=== PATIENT | female | born 1990 | race African-American/Black ===

== ENCOUNTER 2016-08-08 06:52 | Emergency (ER) | payer SELFPAY ==
[~2016-08-08] VITALS: Ht 160 cm; Wt 45.0 kg
[~2016-08-08 06:52] MED LIST: NAPR500 PO
[2016-08-08 06:56] VITALS: BP 147/99; PULSE 93; RESP 16; TEMP 98.1; O2SAT 99
[2016-08-08] MEDS ORDERED: CEPH-460 PO (07:25)
[2016-08-08] MEDS ORDERED: BACT800T5 PO (07:25)
--- NOTE | 2016-08-08 07:25 | PD ---
HPI Chief Complaint: Skin Problem Time Seen by Provider: 07:22 Travel History International Travel<30 days: No Contact w/Intl Traveler<30days: No Traveled to known affect area: No History of Present Illness HPI 26-year-old female presents to the emergency department for reevaluation of a lump to her right face. She states that at 2007, she had a spider bite to her face. She had it drained at that time. However, in the past 3 weeks, she has noticed swelling and tenderness to the same area. She denies any fevers or chills. She was no chronic medical problems and taking no prescribed medications. She denies any chance of . Patient denies any drainage from the area. She has not yet seen a primary care physician for this issue. She denies any other complaints at this time. PFSH Past Medical History Tetanus Vaccination: > 5 Years ?: Not LMP: 08/08/16 Social History Alcohol Use: Yes (WEEKLY) Tobacco Use: Yes (2 CIG DAILY) Substance Use: No Allergies-Medications (Allergen,Severity, Reaction): Coded Allergies: No Known Allergies (Unverified , 08/08/16) Reported Meds & Prescriptions Reported Meds & Active Scripts Active Keflex (Cephalexin) 500 Mg Cap 500 Mg PO Q6H 10 Days Bactrim DS (Sulfamethoxazole-Trimethoprim) 800-160 Mg Tab 1 Tab PO BID Review of Systems Except as stated in HPI: all other systems reviewed are Neg Physical Exam Narrative GENERAL: Well-developed well-nourished female patient, ambulatory. Afebrile. SKIN: Warm and dry. Patient has a 2 cm tender lump with mild erythema to the right lower cheek. No surrounding erythema. No drainage. HEAD: Normocephalic. Atraumatic. EYES: No scleral icterus. No injection or drainage. NECK: Supple, trachea midline. No JVD or lymphadenopathy. CARDIOVASCULAR: Regular rate and rhythm without murmurs, gallops, or rubs. RESPIRATORY: Breath sounds equal bilaterally. No accessory muscle use. Lungs sounds are clear to auscultation. GASTROINTESTINAL: Abdomen soft, non-tender, nondistended. MUSCULOSKELETAL: No cyanosis, or edema. Data Data Last Documented VS Vital Signs Date Time Temp Pulse Resp B/P Pulse Ox O2 Delivery O2 Flow Rate FiO2 08/08/16 06:56 98.1 93 16 147/99 99 Orders Wound Culture And Gram Stain (08/08/16 07:21) Lidocai-Epi 1%-1:100,000 Inj (Xylocaine- (08/08/16 07:30) MDM Medical Decision Making Medical Screen Exam Complete: Yes Emergency Medical Condition: Yes Medical Record Reviewed: Yes Differential Diagnosis Infected sebaceous cyst versus abscess versus cellulitis Narrative Course 26-year-old female presents to the emergency department for evaluation of lump to her right lower cheek that has been ongoing for 3 weeks. She reports a lump in the past that had to be drained. Physical exam is consistent with an infected sebaceous cyst. Patient gives verbal consent for incision and drainage. She is instructed to follow up with a plastic surgeon for removal of cyst. She'll be discharged with a prescription for Bactrim and Keflex. Patient is agreeable to this plan. She is instructed on proper wound care. The patient was discharged in stable condition with instructions, including return instructions and follow up instructions. Procedures Procedure Narrative INCISION AND DRAINAGE OF ABSCESS: The area was prepped and was sterilely draped. A subcutaneous wheal of 1% Xylocaine with epinephrine with a total number 2 mL was used to anesthetize the area. The area was properly anesthetized. A number 11 scalpel was used to make a 0.5 -cm incision across the area of the abscess. Cultures were obtained. The abscess was drained an irrigated with normal saline. Sterile dressing applied. Diagnosis Primary Impression: Infected sebaceous cyst of skin Referrals: Primary Care Physician 2 days Patient Instructions: Abscess (ED), Abscess Incision and Drainage (ED), General Instructions Additional Instructions: Clean twice daily with soap and water and apply [id number] antibiotic ointment. Keep clean and dry. Take antibiotics as directed until gone. Follow-up with your primary care physician for recheck. Return to the emergency department for any acute worsening of symptoms. Med/Other Pt SpecificInfo: Prescription(s) given Scripts Cephalexin (Keflex)500 Mg Jal200 Mg PO Q6H 10 Days Ref 0 Prov:Almita Carranza 08/08/16 Sulfamethoxazole-Trimethoprim (Bactrim DS)800-160 Mg Tab1 Tab PO BID #20 TAB Ref 0 Prov:Almita Carranza 08/08/16 Disposition: 01 DISCHARGE HOME Condition: Stable Almita Carranza Aug 08, 2016 07:25
[2016-08-08] MEDS ORDERED: LIDOCAINE 1%/EPINEPHrine 1:100,000 SOLN 20 ML VIAL INFIL ONE (07:30)
== END 2016-08-08 08:16 | disposition home or self-care (01) ==
LOC: NEPB 06:52
DX: L72.9 Follicular cyst of the skin and subcutaneous tissue, unspecified (principal); Z72.0 Tobacco use
CPT/HCPCS: 10060; 86403; 87070

== ENCOUNTER 2017-05-11 19:12 | Emergency (ER) | payer SELFPAY ==
[~2017-05-11] VITALS: Ht 160 cm; Wt 55.0 kg
[~2017-05-11 19:12] MED LIST changes: +BACT800T5 PO; +CEPH-460 PO; -NAPR500 PO
[2017-05-11 19:13] VITALS: BP 114/72; PULSE 112; RESP 16; TEMP 99.4; O2SAT 100
--- NOTE | 2017-05-11 19:35 | PD ---
HPI Chief Complaint: Injury Time Seen by Provider: 19:29 Travel History International Travel<30 days: No Contact w/Intl Traveler<30days: No Traveled to known affect area: No History of Present Illness HPI 27-year-old black female presents emergent department with complaints of right foot pain after dropping a toolbox on it yesterday at home. She states that she was barefoot at the time. Pain was only mild at the time of the injury. Over the last 24 hours it is becoming moderate and she is having difficulty in relating. She denies any numbness or tingling. No other injury. PFSH Past Medical History Medical History: Denies Significant Hx Tetanus Vaccination: < 5 Years ?: Not LMP: now Past Surgical History Surgical History: No Previous Surgery Social History Alcohol Use: Yes (WEEKLY) Tobacco Use: Yes (2 CIG DAILY) Substance Use: No Allergies-Medications (Allergen,Severity, Reaction): Coded Allergies: No Known Allergies (Unverified Adverse Reaction, Unknown, 05/11/17) Reported Meds & Prescriptions Reported Meds & Active Scripts Active Hydrocodone-Acetaminophen 5-325 mg Tab 1 Tab PO Q6H PRN Review of Systems General / Constitutional: No: Fever Eyes: No: Visual changes HENT: No: Headaches Cardiovascular: No: Chest Pain or Discomfort Respiratory: No: Shortness of Breath Gastrointestinal: No: Abdominal Pain Genitourinary: No: Dysuria Musculoskeletal: Positive: Arthralgias, Limited ROM, Edema, Pain Skin: No Rash Neurologic: No: Weakness Psychiatric: No: Depression Endocrine: No: Polydipsia Hematologic/Lymphatic: No: Easy Bruising Physical Exam Narrative GENERAL: This is a well-nourished, well-developed patient, in no apparent distress. SKIN: No rashes, ecchymoses or lesions. Warm and dry. HEAD: Atraumatic. Normocephalic. EYES: PERRL, EOMI, no discharge or injection. No scleral icterus. EARS: Clear NOSE: Nasal turbinates appear normal. THROAT: Mucosa pink and moist. Airway patent. NECK: Trachea midline. supple, moves head freely. LUNGS: Clear to auscultation. CV: Regular in rhythm. ABDOMEN: Soft nontender. EXT: No clubbing cyanosis. Examination of the right foot reveals tenderness to the mid forefoot with mild swelling. The skin is intact. No pain in the heel, Achilles, mediolateral malleolus. No pain in the distal forefoot or toes. She has intact sensation with good distal pulses. The knee and hip are unremarkable. The left lower leg as well as upper extremity is unremarkable. Data Data Last Documented VS Vital Signs Date Time Temp Pulse Resp B/P (MAP) Pulse Ox O2 Delivery O2 Flow Rate FiO2 05/11/17 19:13 99.4 112 16 114/72 (86) 100 Room Air Orders Orders Foot, Complete (Kfh9doh) (05/11/17 19:32) Ice/Cold Pack (05/11/17 19:32) Ibuprofen (Motrin) (05/11/17 19:45) Mandatory Outpatient Referral (05/11/17 20:27) Splint Or Brace Apply/Monitor (05/11/17 20:28) Crutches (05/11/17 20:28) Acetamin-Hydrocod 325-5 Mg ([place] 5-325 (05/11/17 20:30) MDM Medical Decision Making Medical Screen Exam Complete: Yes Emergency Medical Condition: Yes Medical Record Reviewed: Yes Interpretation(s) Last 24 hours Impressions Foot X-Ray 05/11/171931 Signed Impressions: Service Date/Time: Thursday, May 11, 2017 19:36 - CONCLUSION: Fracturing of the third and fourth metatarsals and likely the second metatarsal. Robinson Alfaro MD Right foot: Positive fractures of the second, third, fourth metatarsals. Differential Diagnosis MDM: High Differential diagnoses: Fracture, sprain, strain, dislocation, contusion, neurovascular injury Narrative Course Patient given ice pack, Motrin 600 mg by mouth x-ray of the right foot. X-ray reveals fractures of the second, third, fourth metatarsals. Patient will be placed in a posterior splint and given crutches. Patient is given Lortab 5 mg by mouth for pain. A mandatory follow-up for podiatry is ordered. This is right foot fractures Diagnosis Primary Impression: Foot fracture, right Qualified Codes: S92.901A - Unspecified fracture of right foot, initial encounter for closed fracture Patient Instructions: General Instructions Departure Forms: Tests/Procedures, Work Release Special Instructions: No work 3 days. Additional Instructions: Rest. Elevation. Ice packs for the next 3 days. Posterior splint and crutches. No weight-bearing. Medications as directed Follow-up with a cloth worker in the next 3-7 days. Return to the ER if any problems Med/Other Pt SpecificInfo: Prescription(s) given Scripts Hydrocodone-Acetaminophen (Hydrocodone-Acetaminophen) 5-325 mg Tab 1 TAB PO Q6H Y for PAIN, #20 TAB 0 Refills Prov: Daniel Luna MD 05/11/17 Disposition: 01 DISCHARGE HOME Condition: Stable Zane Gottlieb May 11, 2017 19:35
[2017-05-11] MEDS ORDERED: IBUPROFEN 600 MG TAB PO ONE (19:45)
--- NOTE | 2017-05-11 20:02 | RADRPT ---
EXAM DATE/TIME: 05/11/2017 19:36 [facility] COMPARISON: No previous studies available for comparison. INDICATIONS : Heavy object fell on foot. Pain and swelling. MEDICAL HISTORY : None. SURGICAL HISTORY : None. ENCOUNTER: Initial ACUITY: 1 day PAIN SCORE: 9/10 LOCATION: Right upper extremity FINDINGS: There are oblique fractures through the distal aspect of the third and fourth metatarsals with latera l displacement of the distal fragments. There also appears to be a lucency seen through the mid to di stal aspect of the second metatarsal concerning for a nondisplaced fracture. No other fracture is see n. There is a hallux valgus deformity. CONCLUSION: Fracturing of the third and fourth metatarsals and likely the second metatarsal. Robinson Alfaro MD on May 11, 2017 at 19:59 Board Certified Radiologist. This report was verified electronically.
[2017-05-11] MEDS ORDERED: HYDR-3516 PO (20:23)
[2017-05-11] MEDS ORDERED: ACETAMINOPHEN/HYDROcodone 325 MG/5 MG TAB PO ONE (20:30)
[2017-05-11 21:07] VITALS: BP 130/78; PULSE 91; RESP 18; O2SAT 100
== END 2017-05-11 21:16 | disposition home or self-care (01) ==
LOC: NEPD 19:12
DX: S92.331A Displaced fracture of third metatarsal bone, right foot, initial encounter for closed fracture (principal); S92.341A Displaced fracture of fourth metatarsal bone, right foot, initial encounter for closed fracture; F17.210 Nicotine dependence, cigarettes, uncomplicated; W22.8XXA Striking against or struck by other objects, initial encounter; Y92.009 Unspecified place in unspecified non-institutional (private) residence as the place of occurrence of the external cause
CPT/HCPCS: 28470; 73630; 99283; E0113

== ENCOUNTER 2017-08-08 19:55 | Emergency (ER) | payer SELFPAY ==
[~2017-08-08 19:55] MED LIST changes: -BACT800T5 PO; -CEPH-460 PO; +HYDR-3516 PO
[2017-08-08 21:26] VITALS: BP 150/114; PULSE 78; RESP 16; TEMP 98.8; O2SAT 98
[2017-08-08 22:12] LABS: BILIRUBIN, URINE NEG (NEG); BLOOD, URINE NEG (NEG); GLUCOSE,URINE NEG (NEG); KETONE, URINE NEG (NEG); MUCUS URINE FEW /lpf (OCC); NITRITE,URINE NEG (NEG); PH, URINE 7.5 (5.0-8.5); SQUAMOUS EPITHELIAL CELL URINE 1 /hpf (0-5); URINE COLOR YELLOW (YELLW/STRAW); URINE LEUKOCYTE ESTERASE NEG (NEG)
[2017-08-08] MEDS ORDERED: SODIUM CHLOR 0.9% 1000 ML INJ 1,000 ML IV SCH (22:51)
--- NOTE | 2017-08-08 22:56 | PD ---
HPI Chief Complaint: GI Complaint Time Seen by Provider: 22:41 Travel History International Travel<30 days: No Contact w/Intl Traveler<30days: No Traveled to known affect area: No History of Present Illness HPI 19-year-old female complains of abdominal pain, nausea vomiting. Patient states that his symptoms started a week ago. Patient states the pain is sharp pain localized left upper quadrant of the abdomen. Patient denies any pain radiation. Patient states that she had intermittent nausea vomiting with the pain. Patient denies any fever chills. Patient states that she had productive cough for the past week also. Patient denies any chest pain or shortness of breath. Patient denies any dysuria frequency. Patient denies any vaginal discharge or bleeding. PFSH Past Medical History Medical History: Denies Significant Hx ?: Not Past Surgical History Surgical History: No Previous Surgery Social History Alcohol Use: No Tobacco Use: No (2 CIG DAILY) Substance Use: No Allergies-Medications (Allergen,Severity, Reaction): Coded Allergies: No Known Allergies (Unverified Adverse Reaction, Unknown, 08/08/17) Reported Meds & Prescriptions Reported Meds & Active Scripts Active Hydrocodone-Acetaminophen 5-325 mg Tab 1 Tab PO Q6H PRN Review of Systems General / Constitutional: No: Fever Eyes: No: Visual changes HENT: No: Headaches Cardiovascular: No: Chest Pain or Discomfort Respiratory: No: Shortness of Breath Gastrointestinal: Positive: Nausea, Vomiting, Abdominal Pain Genitourinary: No: Dysuria Musculoskeletal: No: Pain Skin: No Rash Neurologic: No: Weakness Psychiatric: No: Depression Endocrine: No: Polydipsia Hematologic/Lymphatic: No: Easy Bruising Physical Exam Narrative GENERAL: Well-nourished, well-developed patient. SKIN: Focused skin assessment warm/dry. HEAD: Normocephalic. EYES: No scleral icterus. No injection or drainage. NECK: Supple, trachea midline. No JVD or lymphadenopathy. CARDIOVASCULAR: Regular rate and rhythm without murmurs, gallops, or rubs. RESPIRATORY: Breath sounds equal bilaterally. No accessory muscle use. GASTROINTESTINAL: Abdomen soft, nondistended. Patient has moderate tenderness on palpation left upper quadrant of the abdomen. No rebound tenderness. No mass. MUSCULOSKELETAL: No cyanosis, or edema. BACK: Nontender without obvious deformity. No CVA tenderness. Neurologic exam normal. Data Data Last Documented VS Vital Signs Date Time Temp Pulse Resp B/P (MAP) Pulse Ox O2 Delivery O2 Flow Rate FiO2 08/08/17 23:11 66 18 129/81 (97) 100 Room Air 08/08/17 21:26 98.8 Orders Orders Urinalysis - C+S If Indicated (08/08/17 21:30) Ed Urine Pregnancytest Poc (08/08/17 21:30) Complete Blood Count With Diff (08/08/17 22:51) Comprehensive Metabolic Panel (08/08/17 22:51) Lipase (08/08/17 22:51) Prothrombin Time / Inr (Pt) (08/08/17 22:51) Act Partial Throm Time (Ptt) (08/08/17 22:51) Ct Abd/Pel W Iv Contrast(Rout) (08/08/17 22:51) Iv Access Insert/Monitor (08/08/17 22:51) Ecg Monitoring (08/08/17 22:51) Oximetry (08/08/17 22:51) Morphine Inj (Morphine Inj) (08/08/17 23:00) Ondansetron Inj (Zofran Inj) (08/08/17 23:00) Sodium Chlor 0.9% 1000 Ml Inj (Ns 1000 M (08/08/17 22:51) Sodium Chloride 0.9% Flush (Ns Flush) (08/08/17 23:00) Famotidine Inj (Pepcid Inj) (08/08/17 23:00) Chest, Single Ap (08/08/17 22:54) Iohexol 350 Inj (Omnipaque 350 Inj) (08/09/17 01:04) Labs Laboratory Tests Test 08/08/17 21:34 08/08/17 22:56 Urine Color YELLOW Urine Turbidity CLEAR Urine pH 7.5 Urine Specific [place] 1.020 Urine Protein NEG mg/dL Urine Glucose (UA) NEG mg/dL Urine Ketones NEG mg/dL Urine Occult Blood NEG Urine Nitrite NEG Urine Bilirubin NEG Urine Urobilinogen LESS THAN 2.0 MG/DL Urine Leukocyte Esterase NEG Urine WBC 1 /hpf Urine Squamous Epithelial Cells 1 /hpf Urine Mucus FEW /lpf Microscopic Urinalysis Comment CULT NOT INDICATED White Blood Count 4.4 TH/MM3 Red Blood Count 4.96 MIL/MM3 Hemoglobin 13.1 GM/DL Hematocrit 39.9 % Mean Corpuscular Volume 80.3 FL Mean Corpuscular Hemoglobin 26.4 PG Mean Corpuscular Hemoglobin Concent 32.8 % Red Cell Distribution Width 15.1 % Platelet Count 381 TH/MM3 Mean Platelet Volume 8.6 FL Neutrophils (%) (Auto) 56.4 % Lymphocytes (%) (Auto) 32.3 % Monocytes (%) (Auto) 9.8 % Eosinophils (%) (Auto) 0.5 % Basophils (%) (Auto) 1.0 % Neutrophils # (Auto) 2.5 TH/MM3 Lymphocytes # (Auto) 1.4 TH/MM3 Monocytes # (Auto) 0.4 TH/MM3 Eosinophils # (Auto) 0.0 TH/MM3 Basophils # (Auto) 0.0 TH/MM3 CBC Comment DIFF FINAL Differential Comment Prothrombin Time 10.8 SEC Prothromb Time International Ratio 1.1 RATIO Activated Partial Thromboplast Time 23.1 SEC Blood Urea Nitrogen 10 MG/DL Creatinine 0.81 MG/DL Random Glucose 87 MG/DL Total Protein 8.1 GM/DL Albumin 3.9 GM/DL Calcium Level 8.9 MG/DL Alkaline Phosphatase 69 U/L Aspartate Amino Transf (AST/SGOT) 21 U/L Alanine Aminotransferase (ALT/SGPT) 22 U/L Total Bilirubin 0.4 MG/DL Sodium Level 136 MEQ/L Potassium Level 4.2 MEQ/L Chloride Level 102 MEQ/L Carbon Dioxide Level 27.7 MEQ/L Anion Gap 6 MEQ/L Estimat Glomerular Filtration Rate 102 ML/MIN Lipase 87 U/L MDM Medical Decision Making Medical Screen Exam Complete: Yes Emergency Medical Condition: Yes Interpretation(s) 12:28 AM. Last Impressions Chest X-Ray 08/08/17 [id number] Signed Impressions: Service Date/Time: Tuesday, August 08, 2017 23:00 - CONCLUSION: The lungs are clear. Thomas Chicas MD 12:28 AM. CBC within normal limits. CMP within normal limits. UA is negative. Differential Diagnosis Differential diagnosis including pneumonia, gastritis, PUD, pancreatitis, colitis, UTI, pyelonephritis, nephrolithiasis. Narrative Course 27-year-old female with left upper quadrant abdominal pain, nausea vomiting, productive cough. Diagnosis Primary Impression: Abdominal pain Qualified Codes: R10.12 - Left upper quadrant pain Additional Impressions: Bronchitis Ovarian cyst Qualified Codes: N83.202 - Unspecified ovarian cyst, left side Patient Instructions: General Instructions Additional Instructions: Take medication as directed. Follow-up with personal physician. Return if worse. Med/Other Pt SpecificInfo: Prescription(s) given Scripts Ondansetron Odt (Zofran Odt) 4 Mg Tab 4 MG SL Q6HR Y for Nausea/Vomiting, #10 TAB 0 Refills Prov: Sterling Mathew MD 08/09/17 Dicyclomine (Bentyl) 10 Mg Cap 10 MG PO TID Y for Bowel Management, #21 CAP 0 Refills Prov: Sterling Mathew MD 08/09/17 Pantoprazole (Protonix) 40 Mg Tab 40 MG PO DAILY for Reflux, #30 TAB 0 Refills Prov: Sterling Mathew MD 08/09/17 Azithromycin (Zithromax Z-Harlan) 250 Mg Dspk 250 MG PO DIRECTED for Infection, #1 DSPK 0 Refills 500 MG (2 tabs) day 1, then 1 tab days 2-5. Prov: Sterling Mathew MD 08/09/17 Disposition: 01 DISCHARGE HOME Condition: Stable Sterling Mathew MD Aug 08, 2017 22:56
[2017-08-08] MEDS ORDERED: MORPHINE SULFATE 4 MG/ML INJ IV PUSH ONE (23:00)
[2017-08-08] MEDS ORDERED: ONDANSETRON HCL 4 MG/2 ML VIAL IVP ONE (23:00)
[2017-08-08] MEDS ORDERED: SODIUM CHLORIDE 0.9% FLUSH 10 ML FLUSH IV FLUSH PRN (23:00)
[2017-08-08] MEDS ORDERED: FAMOTIDINE 20 MG/2 ML VIAL IV PUSH ONE (23:00)
[2017-08-08 23:11] VITALS: BP 129/81; PULSE 66; RESP 18; O2SAT 100
[2017-08-08 23:14] LABS: AUTOMATED NEUTROPHIL # 2.5 TH/MM3 (1.8-7.7); EOSINOPHIL % 0.5 % (0.0-4.0); HEMATOCRIT 39.9 % (35.0-46.0); HEMOGLOBIN 13.1 GM/DL (11.6-15.3); LYMPH % 32.3 % (9.0-44.0); LYMPHOCYTE # 1.4 TH/MM3 (1.0-4.8); MEAN CELL VOLUME 80.3 FL (80.0-100.0); MEAN CORPUSCULAR HEMOGLOBIN 26.4 PG (27.0-34.0); MEAN CORPUSCULAR HGB CONC 32.8 % (32.0-36.0); MEAN PLATELET VOLUME 8.6 FL (7.0-11.0); MONO % 9.8 % (0.0-8.0); MONOCYTE # 0.4 TH/MM3 (0-0.9); NEUT % 56.4 % (16.0-70.0); PLATELET COUNT 381 TH/MM3 (150-450); RED BLOOD COUNT 4.96 MIL/MM3 (4.00-5.30); RED CELL DISTRIBUTION WIDTH 15.1 % (11.6-17.2); WHITE BLOOD COUNT 4.4 TH/MM3 (4.0-11.0)
--- NOTE | 2017-08-08 23:15 | RADRPT ---
EXAM DATE/TIME: 08/08/2017 23:00 [facility] COMPARISON: No previous studies available for comparison. INDICATIONS : Cough and chest pain. MEDICAL HISTORY : None. SURGICAL HISTORY : None. ENCOUNTER: Initial ACUITY: 1 week PAIN SCORE: 10/10 LOCATION: Bilateral chest FINDINGS: A single view of the chest demonstrates the lungs to be symmetrically aerated without evidence of mas s, infiltrate or effusion. The cardiomediastinal contours are unremarkable. Osseous structures are intact. CONCLUSION: The lungs are clear. Thomas Chicas MD on August 08, 2017 at 23:13 Board Certified Radiologist. This report was verified electronically.
[2017-08-08 23:20] LABS: INTERNATIONAL NORMALIZED RATIO 1.1 RATIO; PROTHROMBIN TIME - PATIENT 10.8 SEC (9.8-11.6)
[2017-08-08 23:37] LABS: ALT (GPT) 22 U/L (10-53)
[2017-08-08 23:40] LABS: ALKALINE PHOSPHATASE 69 U/L (45-117); TOTAL BILIRUBIN ADULT 0.4 MG/DL (0.2-1.0); TOTAL PROTEIN 8.1 GM/DL (6.4-8.2)
[2017-08-08 23:55] LABS: ALBUMIN 3.9 GM/DL (3.4-5.0); AST (GOT) 21 U/L (15-37); BICARBONATE 27.7 MEQ/L (21.0-32.0); BLOOD UREA NITROGEN 10 MG/DL (7-18); CALCIUM 8.9 MG/DL (8.5-10.1); CHLORIDE 102 MEQ/L (98-107); CREATININE 0.81 MG/DL (0.50-1.00); GLOMERULAR FILTRATION RATE 102 ML/MIN (>89); GLUCOSE,RANDOM 87 MG/DL (74-106); SODIUM (NA) 136 MEQ/L (136-145)
[2017-08-09] MEDS ORDERED: IOHEXOL 350 MG/ML 10 ML VIAL (for RAD DIAG) IVCONTRAST ONE (01:04)
--- NOTE | 2017-08-09 01:18 | RADRPT ---
EXAM DATE/TIME: 08/09/2017 00:59 [facility] COMPARISON: No previous studies available for comparison. INDICATIONS : Left upper quadrant abdomen pain. IV CONTRAST: 96 cc Omnipaque 350 (iohexol) IV ORAL CONTRAST: No oral contrast ingested. RADIATION DOSE: 5.56 CTDIvol (mGy) MEDICAL HISTORY : None SURGICAL HISTORY : None. ENCOUNTER: Initial ACUITY: 1 day PAIN SCALE: 7/10 LOCATION: Left upper quadrant abdomen TECHNIQUE: Volumetric scanning of the abdomen and pelvis was performed. Using automated exposure control and ad justment of the mA and/or kV according to patient size, radiation dose was kept as low as reasonably achievable to obtain optimal diagnostic quality images. DICOM format image data is available electro nically for review and comparison. FINDINGS: LOWER LUNGS: The visualized lower lungs are clear. LIVER: Homogeneous density without lesion. There is no dilation of the biliary tree. No calcified gallston es. SPLEEN: Normal size without lesion. PANCREAS: Within normal limits. KIDNEYS: Normal in size and shape. There is no mass, stone or hydronephrosis. ADRENAL GLANDS: Within normal limits. VASCULAR: There is no aortic aneurysm. BOWEL/MESENTERY: The stomach, small bowel, and colon demonstrate no acute abnormality. There is no free intraperitone al air or fluid. No evidence of appendicitis. ABDOMINAL WALL: Within normal limits. RETROPERITONEUM: There is no lymphadenopathy. BLADDER: No wall thickening or mass. REPRODUCTIVE: Multiloculated cystic structure seen in the left adnexal region measuring approximately 3.1 cm in siz e. This appear somewhat serpiginous on the coronal reconstructions submitted differential would inclu de hydrosalpinx. No free fluid. INGUINAL: There is no lymphadenopathy or hernia. MUSCULOSKELETAL: No acute bony abnormality. CONCLUSION: 1. Multiloculated cyst of the left ovary versus left hydrosalpinx. No free fluid. 2. The remainder of the CT of the abdomen and pelvis is within normal limits. I don't see an etiology for left upper quadrant pain. Roibnson Denise MD on August 09, 2017 at 1:14 Board Certified Radiologist. This report was verified electronically.
[2017-08-09] MEDS ORDERED: PROT40TA PO (01:33)
[2017-08-09] MEDS ORDERED: ZITHTAB PO (01:33)
[2017-08-09] MEDS ORDERED: ZOFR4TAB3 SL (01:33)
[2017-08-09] MEDS ORDERED: DICY10 PO (01:33)
== END 2017-08-09 01:45 | disposition home or self-care (01) ==
LOC: NEPD 19:55
DX: R10.12 Left upper quadrant pain (principal); J40 Bronchitis, not specified as acute or chronic; N83.202 Unspecified ovarian cyst, left side
CPT/HCPCS: 71045; 74177; 80053; 81001; 83690; 84703; 85025; 85610; 85730; 96374; 96375; 99285; J2270; J2405; J7030; Q9967